=== PATIENT | male | born 1950 ===

== ENCOUNTER 2017-12-28 23:50 | Emergency (ER) | payer MEDICARE ==
[~2017-12-28] VITALS: Ht 175.3 cm; Wt 104.3 kg
[2017-12-29] MEDS ORDERED: ALBU90OI INH (02:46)
[2017-12-29] MEDS ORDERED: LISI5 PO (02:46)
[2017-12-29] MEDS ORDERED: Amoxicillin500 MG PO (03:13)
[2017-12-29] MEDS ORDERED: PRED20 PO (03:14)
== END 2017-12-29 03:40 | disposition home or self-care (01) ==
LOC: ER 23:50
DX: R05 Cough (principal); I10 Essential (primary) hypertension; Z79.899 Other long term (current) drug therapy; Z87.891 Personal history of nicotine dependence
CPT/HCPCS: 71045; 99283

== ENCOUNTER 2018-01-04 12:24 | Observation (INO) | payer MEDICARE ==
[~2018-01-04] VITALS: Ht 172.7 cm; Wt 123.5 kg
[~2018-01-04 12:24] MED LIST: ALBU90OI INH; Amoxicillin500 MG PO; LISI5 PO; PRED20 PO
[2018-01-04 13:00] LABS: BASOPHILS ABSOLUTE AUTO 0.03 K/mm3 (0.00-0.23); BASOPHILS PERCENT AUTO 0 % (0-2); EOSINOPHILS ABSOLUTE AUTO 0.16 K/mm3 (0.00-0.68); EOSINOPHILS PERCENT AUTO 2 % (0-6); Hematocrit 43.7 % (37.0-53.0); Hemoglobin 15.6 g/dL (13.5-17.5); IMMATURE GRAN ABSOLUTE AUTO 0.07 K/mm3 (0.00-0.10); IMMATURE GRAN PERCENT AUTO 1 % (0-1); LYMPHOCYTES ABSOLUTE AUTO 1.67 K/mm3 (0.84-5.20); LYMPHOCYTES PERCENT AUTO 20 % (21-46); MONOCYTES ABSOLUTE AUTO 0.72 K/mm3 (0.16-1.47); MONOCYTES PERCENT AUTO 9 % (4-13); Mean Corpuscular HGB 33.1 pg (26.0-34.0); Mean Corpuscular HGB Conc 35.7 g/dL (31.5-36.5); Mean Corpuscular Volume 93 fL (80-100); NEUTROPHILS ABSOLUTE AUTO 5.66 K/mm3 (1.96-9.15); NEUTROPHILS PERCENT AUTO 68 % (41-73); Platelet Count 295 K/mm3 (150-400); RDW Standard Deviation 41.4 fL (35.1-46.3); Red Blood Cell Count 4.71 M/mm3 (4.30-5.90); White Blood Cell Count 8.31 K/mm3 (4.00-11.30)
[2018-01-04 13:21] LABS: Alanine Aminotransfer (ALT/SGP 50 U/L (12-78); Albumin, Blood 3.4 g/dL (3.4-5.0); Alk Phos 70 U/L (50-136); Anion Gap 10 mmol/L (6-16); Aspartate Aminotrans (AST/SGOT 28 U/L (12-37); Bilirubin, Total 0.6 mg/dL (0.1-1.0); Blood Urea Nitrogen 16 mg/dL (8-24); Bun/Creatinine Ratio 18.8 (12.0-20.0); CO2, Blood 25 mmol/L (21-32); Calcium, Blood 8.1 mg/dL (8.5-10.1); Chloride, Blood 105 mmol/L (98-108); Creatinine, Blood 0.85 mg/dL (0.60-1.20); Globulin, Blood 3.4 g/dL (2.2-4.0); Glomerular Filtration Rate >60 (60-); Glucose, Blood 132 mg/dL (70-99); Potassium, Blood 3.9 mmol/L (3.5-5.5); Sodium, Blood 140 mmol/L (136-145); Total Protein, Blood 6.8 g/dL (6.4-8.2); Troponin I <0.015 ng/mL (0.000-0.040)
[2018-01-04] MEDS ORDERED: AMOX250 PO (20:04)
[2018-01-04] MEDS ORDERED: ALBU90OI INH (20:05)
[2018-01-04] MEDS ORDERED: ASPI325 PO (20:06)
[2018-01-04 21:12] LABS: CPK Creatine Kinase 163 U/L (39-308); Creatine Kinase MB 4.6 ng/mL (0.0-3.6); Creatine Kinase MB Index 2.8 (0.0-4.0); Troponin I <0.015 ng/mL (0.000-0.040)
[2018-01-05 04:28] LABS: Hematocrit 44.2 % (37.0-53.0); Hemoglobin 15.7 g/dL (13.5-17.5); Mean Corpuscular HGB Conc 35.5 g/dL (31.5-36.5); Mean Corpuscular Volume 93 fL (80-100); Mean Platelet Volume 9.8 fL (9.1-12.4); Platelet Count 268 K/mm3 (150-400); RDW Coefficient Variation 12.1 % (11.7-14.2); RDW Standard Deviation 41.5 fL (35.1-46.3); Red Blood Cell Count 4.76 M/mm3 (4.30-5.90); White Blood Cell Count 6.56 K/mm3 (4.00-11.30)
[2018-01-05 05:05] LABS: Anion Gap 10 mmol/L (6-16); Blood Urea Nitrogen 13 mg/dL (8-24); Bun/Creatinine Ratio 18.3 (12.0-20.0); CHOL/HDL RATIO 4.1; CO2, Blood 25 mmol/L (21-32); CPK Creatine Kinase 150 U/L (39-308); Calcium, Blood 8.1 mg/dL (8.5-10.1); Chloride, Blood 106 mmol/L (98-108); Cholesterol 144 mg/dL (50-200); Creatine Kinase MB 3.9 ng/mL (0.0-3.6); Creatine Kinase MB Index 2.6 (0.0-4.0); Creatinine, Blood 0.71 mg/dL (0.60-1.20); Glomerular Filtration Rate >60 (60-); Glucose, Blood 130 mg/dL (70-99); HDL Cholesterol 35 mg/dL (>39); LDL/HDL RATIO 2.5; Low Density Lipoprotein Chol 88 mg/dL (0-110); Potassium, Blood 3.8 mmol/L (3.5-5.5); Sodium, Blood 141 mmol/L (136-145); Triglycerides 104 mg/dL (30-160); Troponin I <0.015 ng/mL (0.000-0.040); Very Low Density Lipoprot Chol 20 mg/dL (6-32)
[2018-01-06] MEDS ORDERED: ASPI81CH PO (18:18)
[2018-01-06] MEDS ORDERED: NITR.4SL SL (18:20)
== END 2018-01-06 19:20 | disposition home or self-care (01) ==
LOC: ER 12:24 → MEDS 12:25 → ENPENDDIS 01-06 18:37 → MEDS 01-06 19:20
PROVIDERS: Emergency Medicine; Internal Medicine
DX: R07.9 Chest pain, unspecified (principal); E66.01 Morbid (severe) obesity due to excess calories; I10 Essential (primary) hypertension; M54.9 Dorsalgia, unspecified; I25.10 Atherosclerotic heart disease of native coronary artery without angina pectoris; G89.4 Chronic pain syndrome; Z79.899 Other long term (current) drug therapy; Z79.82 Long term (current) use of aspirin
CPT/HCPCS: 36415; 71046; 78452; 80048; 80053; 80061; 82550; 82553; 83036; 84484; 85025; 85027; 93005; 93010; 93017; 96372; 96374; 99285; A9500; G0378; J0706; J1650; J2785

== ENCOUNTER 2021-01-06 14:00 | Emergency (ER) | payer MEDICARE ==
[~2021-01-06] VITALS: Ht 172.7 cm; Wt 122.5 kg
[~2021-01-06 14:00] MED LIST changes: +AMOX250 PO; +ASPI325 PO; +ASPI81CH PO; +NITR.4SL SL
== END 2021-01-06 18:07 | disposition home or self-care (01) ==
LOC: ER 14:00
DX: K59.00 Constipation, unspecified (principal); I10 Essential (primary) hypertension; I25.10 Atherosclerotic heart disease of native coronary artery without angina pectoris; Z79.82 Long term (current) use of aspirin
CPT/HCPCS: 74018; 99283-25; A9270

== ENCOUNTER 2022-08-13 06:49 | Day surgery (SDC) | payer MEDICARE ==
[~2022-08-13] VITALS: Ht 175.3 cm; Wt 118.9 kg
== END 2022-08-13 08:43 | disposition home or self-care (01) ==
LOC: ORSCSDS 06:49
PROVIDERS: Ophthalmology
PROC: 08RJ3JZ Replacement of Right Lens with Synthetic Substitute, Percutaneous Approach (ICD-10-PCS; principal; 2022-08-13 08:00)
DX: H25.11 Age-related nuclear cataract, right eye (principal); I10 Essential (primary) hypertension; E11.9 Type 2 diabetes mellitus without complications; I25.10 Atherosclerotic heart disease of native coronary artery without angina pectoris; G47.33 Obstructive sleep apnea (adult) (pediatric); J45.909 Unspecified asthma, uncomplicated; Z79.899 Other long term (current) drug therapy; E66.9 Obesity, unspecified; Z68.38 Body mass index [BMI] 38.0-38.9, adult
CPT/HCPCS: J2001; J2250; J3010; J3301; J7040; V2632

== ENCOUNTER 2022-08-18 12:16 | Day surgery (SDC) | payer MEDICARE ==
[~2022-08-18] VITALS: Ht 175.3 cm; Wt 117.6 kg
== END 2022-08-18 14:20 | disposition home or self-care (01) ==
LOC: ORSCSDS 12:16
PROVIDERS: Ophthalmology
PROC: 08RK3JZ Replacement of Left Lens with Synthetic Substitute, Percutaneous Approach (ICD-10-PCS; principal; 2022-08-18 13:30)
DX: H25.12 Age-related nuclear cataract, left eye (principal); I10 Essential (primary) hypertension; J45.909 Unspecified asthma, uncomplicated; Z79.899 Other long term (current) drug therapy
CPT/HCPCS: J2001; J2250; J3010; J3301; J7040; V2632